=== PATIENT | female | born 1960 | race Caucasian/White ===

== ENCOUNTER → 2017-01-05 | Day surgery (SDC) | payer BC ==
[~2017-01-05] MED LIST: FENTANYL PF 100 MCG/2 ML VIAL. IV PRN; FLUO20CA8 PO; HYDROMORPHONE 2 MG/ML VIAL. IV PRN; IV RINGERS,LACTATED 1000ML 1,000 ML IV SCH; LEVO25TA4 PO; LIDOCAINE 1% 1 ML SYRINGE. ID PRN; LIDOCAINE 2% PF Vial for OR 5 ML VIAL. ONE; MORPHINE SULFATE 2 MG/ML DISP.SYRIN. IV PRN; OMEP40CA5 PO; ONDANSETRON PF 4 MG/2 ML VIAL. IV PRN; PROCHLORPERAZINE 10 MG/2 ML VIAL. IV PRN; PROPOFOL 20 ML IV ONE
[2017-01-05 10:40] VITALS: BP 113/69
--- NOTE | 2017-01-07 23:55 | HP ---
ADMIT DATE: 01/05/2017 REFERRING PHYSICIAN: Paloma Young DO. HISTORY OF PRESENT ILLNESS: A 56-year-old female with past medical history significant for hypothyroidism, gastroesophageal reflux disease as well as esophageal stricture status post dilatation with Ni's and diverticulosis seen with recurrent upper abdominal and lower chest pain. She is occasionally dyspneic. She is a nonsmoker and recent blood counts have been normal. There has been no recurrent dysphagia, but for continued symptoms, she requests additional evaluation. PAST MEDICAL HISTORY: History of Ni's, anxiety, hypothyroidism and diverticulosis. ALLERGIES: None. MEDICATIONS: Include Prozac, levothyroxine, and omeprazole. SOCIAL HISTORY: She is a nonsmoker, social drinker. FAMILY HISTORY: Significant for diabetes with her mother and ovarian cancer with her aunt. Myocardial infarction with her mother and maternal grandmother and hypertension in multiple family members. REVIEW OF SYSTEMS: As per records. PAST SURGICAL HISTORY: , tonsillectomy, hysterectomy vesicovaginal fistula repair and diverticular disease. PHYSICAL EXAMINATION: GENERAL: Reveals a well-nourished, well-developed female. VITAL SIGNS: Temperature 98.3, pulse 69, and respirations 18. HEENT: Normocephalic and atraumatic head. Pupils and extraocular movements not tested. Sclerae anicteric. NECK: Supple. LUNGS: Clear. CARDIOVASCULAR: Reveals an S1, S2 without S3, S4 or appreciable murmur. ABDOMEN: Soft abdomen, normal bowel sounds, but appears to deep palpation without appreciable hepatosplenomegaly. EXTREMITIES: Reveals no cyanosis, clubbing or edema. IMPRESSION: Atypical chest pain, epigastric pain, etiology is to be determined. Differential includes gallbladder disease, reflux, gastroparesis, possible infection and organic heart disease with right coronary involvement. Therefore, I recommend upper endoscopy to further assess her symptoms, possible biopsy, this is unrevealing for history of Ni's and additional imaging of the hepatobiliary tree, chest, and possible cardiac stress testing would be recommended with her family physician. ARMANDO MORTON MD DR: KEENAN/jony JOB#: [id number] / [id number] ecc DO Young Suzan
--- NOTE | 2017-01-08 13:28 | PATHOLOGY ---
PATHOLOGY REPORT * * * * * * * * FINAL DIAGNOSIS: Esophageal biopsies, distal esophagus: - Segments of hyperplastic squamous esophageal mucosa consistent with reflux esophagitis. COMMENT: Sections of the distal esophageal biopsy reveal segments of focally tangentially oriented hyperplastic squamous esophageal mucosa. The findings are consistent with reflux esophagitis. There is no evidence of Ni's change, dysplasia, or malignancy. (JPM:; d/t: 01/08/17) REPORT ELECTRONICALLY SIGNED BY: Ranjith Quiroz M.D. DATE/TIME: 01/08/2017 13:27 * * * * * * * * GROSS PATHOLOGY: Received in formalin labeled "Love Morales and distal esophagus biopsies," are 5 segments of streeter soft tissue measuring 1.8 x 0.4 x 0.2 cm in aggregate dimensions and ranging from 0.3 to 0.6 cm in maximum dimension. The specimen is submitted entirely in cassette A1. (TTL; 01/05/2017) INITIAL CPT CODE(S): A; 92942 Professional services performed by [facility] [place] [address] Technical services performed by [facility] at [address] [place] [address]. SPECIMEN(S) RECEIVED: A.Distal esophageal biopsies, gastritis, r/o Ni's CLINICAL HISTORY: Epigastric pain PATIENT: LOVE MORALES /AGE: 401/17/1960 (Age: 56) PATIENT #: [id number] ALT CASE #: SPECIMEN COLLECTION DATE: 01/05/2017 SPECIMEN RECEIVED DATE: 01/05/2017 [facility] - [address] [place] [address] - PHONE: [phone] * * * END OF REPORT * * *
== END | disposition home or self-care (01) ==
LOC: ENDOS 08:58
PROVIDERS: ATTEND Internal Medicine Gastroenterology
DX: K21.0 Gastro-esophageal reflux disease with esophagitis (principal); K29.50 Unspecified chronic gastritis without bleeding; F32.9 Major depressive disorder, single episode, unspecified; Z90.710 Acquired absence of both cervix and uterus
CPT/HCPCS: 43239; G0500; J2704; 88305